=== PATIENT | female | born 1990 | race American Indian/Alaskan Native ===

== ENCOUNTER 2017-07-08 21:38 | Emergency (ER) | payer MEDICAID | END 2017-07-08 22:53 | disposition left against medical advice (07) | LOC: ED 21:38 | DX: R10.9 Unspecified abdominal pain (principal); Z53.21 Procedure and treatment not carried out due to patient leaving prior to being seen by health care provider ==

== ENCOUNTER 2019-01-02 14:32 | Emergency (ER) | payer MEDICAID ==
--- NOTE | 2019-01-02 14:39 | Emergency Department Report ---
Blank Doc - Documentation Documentation: This is a 28-year-old female that presents with lower back pain s/p injury. This initial assessment/diagnostic orders/clinical plan/treatment(s) is/are subject to change based on patient's health status, clinical progression and re- assessment by fellow clinical providers in the ED. Further treatment and workup at subsequent clinical providers discretion. Patient/guardians urged not to elope from the ED as their condition may be serious if not clinically assessed and managed. Initial orders include: 1- Patient sent to [facility] for further evaluation and treatment 2- xrays 3- UA
[2019-01-02 14:40] VITALS: BP 123/61
[2019-01-02 15:07] LABS: HCG Qualitative,Urine Negative (Negative)
[2019-01-02 15:08] LABS: Bilirubin,Urine NEG (Negative); Blood,Urine NEG (Negative); Color,Urine Yellow (Yellow); Mucus,Urine FEW /HPF; Protein,Urine <15 mg/dL mg/dL (Negative)
--- NOTE | 2019-01-02 15:54 | XRay Report ---
CLINICAL DATA: lumbar pain TECHNICAL DATA: AP and lateral views lumbar spine. FINDINGS: The bone mineralization is normal. Vertebral body heights are normal. Intervertebral disc spaces are well maintained. Pedicles and spinous processes are normal in alignment. SI joints and sacrum are nor mal. IMPRESSION: Normal examination lumbar spine. Signer Name: Delfin De Paz MD Signed: 01/02/2019 3:49 PM Workstation Name: [email or web address]
--- NOTE | 2019-01-02 17:49 | Emergency Department Report ---
ED Back Pain/Injury HPI - General Chief Complaint: Fall Stated Complaint: TAIL BONE PAIN Time Seen by Provider: 01/02/19 14:38 Source: patient Limitations: No Limitations - History of Present Illness Initial Comments: This 28-year-old female with no prior medical history presents to ED complaining of tailbone pain started Thursday. Patient states on Thursday her son was playing with her and accidentally moved the chair from under her so she fell bladder. Patient states she's been having pain since then. She states the pain is worsened with trying to stand. She denies any bleeding bruising to the area. She denies inability to have a bowel movement or urinate. She denies still has hasn't vomited MD Complaint: fall - Related Data Previous Rx's Medication Instructions Recorded Last Taken Type Ondansetron [Zofran Odt] 4 mg PO Q6H #20 tab.rapdis 06/30/14 Unknown Rx Penicillin Vk [Veetids TAB] 500 mg PO QID #40 tablet 04/10/15 Unknown Rx Ibuprofen [Motrin 600 MG tab] 600 mg PO Q8H PRN #40 tablet 01/02/19 Unknown Rx traMADol [Ultram 50 MG tab] 50 mg PO Q6HR PRN #10 tablet 01/02/19 Unknown Rx Allergies Allergy/AdvReac Type Severity Reaction Status Date / Time No Known Allergies Allergy Verified 06/29/14 19:28 ED Review of Systems ROS: Stated complaint: TAIL BONE PAIN Other details as noted in HPI Comment: All other systems reviewed and negative ED Past Medical Hx Family history: no significant family history ED Back Pain Physical Exam - Exam General: Vital signs noted. No distress. Alert and acting appropriately. Back/Abdomen: No Abdominal Tenderness, No Perithoracic Tenderness, No Perilumbar Tenderness, No Sacroiliac Tenderness, No Flank Tenderness, No Straight Leg Raise Pain Neuro: Yes Normal Sensation, Yes Normal DTR's, Yes Normal Gait, No Motor Weakness ED Course Vital Signs 01/02/19 14:38 Temperature 98.4 F Pulse Rate 76 Respiratory 18 Rate Blood Pressure 123/61 O2 Sat by Pulse 100 Oximetry Ed Back Pain Tests - Tests Tests: Normal UA, Normal X Rays ED Medical Decision Making - Radiology Data Radiology results: report reviewed, image reviewed - Medical Decision Making 28-year-old female presents with tailbone pain X-rays show see reported above. There was no coccyx or sacrum fracture displacement placement. Discussed his findings with the patient. Discussed the patient is to follow-up with orthopedic doctor. Vital signs are normal patient is no acute distress. Patient able to ambulate with no problems. Critical care attestation.: If time is entered above; I have spent that time in minutes in the direct care of this critically ill patient, excluding procedure time. ED Disposition Clinical Impression: Fall, Pain in the coccyx Disposition: DC- TO HOME OR SELFCARE Is pt being admited?: No Does the pt Need Aspirin: No Condition: Stable Instructions: Acute Low Back Pain (ED), Arthralgia (ED) Additional Instructions: Make sure to follow up with the primary care physician as discussed. Take all your medications as you've been prescribed. Follow-up with orthopedic doctor as discussed. If you have any worsening symptoms or develop new symptoms please return to ED immediately. Prescriptions: Ibuprofen [Motrin 600 MG tab] 600 mg PO Q8H PRN #40 tablet PRN Reason: Pain Referrals: THUAN LOPEZ MD [Primary Care Provider] - 3-5 Days ZAMZAM DUNN MD [Staff Physician] - 3-5 Days Forms: Work/School Release Form(ED) Time of Disposition: 18:14
--- NOTE | 2019-01-02 18:39 | XRay Report ---
Examination: Sacrum/coccyx radiograph, 2 views, 01/02/2019 Clinical information: Fall. Pain. Comparison: Lumbar spine radiograph, 01/02/2019 Findings: There is no evidence of displaced fracture involving the sacrum or coccyx. The bilateral SI joints appear symmetric and within normal limits. Impression: No evidence of displaced sacral or coccyx fracture. Signer Name: Adriana Lord MD Signed: 01/02/2019 6:34 PM Workstation Name: [email or web address]
[2019-01-02] MEDS ORDERED: IBUPROFEN PO ONE ×2 (18:55→18:56)
== END 2019-01-02 18:57 | disposition home or self-care (01) ==
LOC: ED 14:32
DX: M53.3 Sacrococcygeal disorders, not elsewhere classified (principal); W18.30XA Fall on same level, unspecified, initial encounter; Y93.89 Activity, other specified; Y92.410 Unspecified street and highway as the place of occurrence of the external cause; Y99.8 Other external cause status
CPT/HCPCS: 72100; 72220; 81001; 81025; 99283